=== PATIENT | female | born 1950 | race Caucasian/White ===

== ENCOUNTER 2019-02-24 11:18 | Outpatient (REF) | payer OTHER, SELFPAY ==
[2019-02-24 19:48] LABS: ALT 19 U/L (12-78); Albumin 3.6 g/dL (3.4-5.0); Anion Gap 9.4 mmol/L (3-11); BUN 16 mg/dL (7-18); CO2 28.6 mmol/L (21.0-32.0); Calcium 9.6 mg/dL (8.5-10.1); Chloride 102 mmol/L (98-107); Glucose 96 mg/dL (70-100); LDL CHOLESTEROL 72 mg/dL (<100); Magnesium 1.8 mg/dL (1.8-2.4); Potassium 4.3 mmol/L (3.5-5.1); Sodium 140 mmol/L (136-145)
[2019-02-24 20:14] LABS: CREATININE 0.75 mg/dL (0.55-1.02); PHOSPHORUS 4.1 mg/dL (2.6-4.7)
== END 2019-02-24 11:38 ==
LOC: NCHCN 11:18
PROVIDERS: PCP Internal Medicine; Visit Provider Internal Medicine
DX: E78.5 Hyperlipidemia, unspecified (principal); M81.0 Age-related osteoporosis without current pathological fracture; H34.8122 Central retinal vein occlusion, left eye, stable
CPT/HCPCS: 80069; 83721; 83735; 84460

== ENCOUNTER 2020-02-29 13:10 | Outpatient (REF) | payer OTHER, SELFPAY ==
[2020-02-29 19:49] LABS: HCT 42.1 % (36.0-46.0); HGB 13.7 g/dL (12.0-15.5); Mean Corp. HGB Concentration 32.5 g/dL (32.0-36.0); Mean Corpuscular Hemoglobin 30.7 pg (27.0-33.0); Mean Corpuscular Volume 94.4 fL (80-95); Mean Platelet Volume 12.1 fL (8.0-11.0); Platelet Count 332 x1000/uL (130-400); RBC 4.46 m/cumm (4.00-5.20); RBC Distribution Width 14.3 % (11.7-14.6); White Blood Cell Count 7.41 k/cumm (4.4-10.8)
[2020-02-29 20:36] LABS: ALT 23 U/L (14-59); Anion Gap 4.2 mmol/L (3-11); BUN 19 mg/dL (7-18); CO2 30.8 mmol/L (21.0-32.0); CREATININE 0.95 mg/dL (0.55-1.02); Calcium 9.9 mg/dL (8.5-10.1); Chloride 104 mmol/L (98-107); Estimated GFR 58.16 (mL/min/1.73m2); Glucose 88 mg/dL (74-106); LDL CHOLESTEROL 82 mg/dL (<100); Magnesium 2.1 mg/dL (1.8-2.4); Potassium 4.4 mmol/L (3.5-5.1); Sodium 139 mmol/L (136-145); TSH 1.05 uIU/mL (0.36-3.74)
[2020-02-29 21:02] LABS: FREE T4 1.04 ng/dL (0.76-1.46); PHOSPHORUS 4.3 mg/dL (2.6-4.7)
== END 2020-02-29 13:30 ==
LOC: NCHCN 13:10
PROVIDERS: PCP Internal Medicine; Visit Provider Internal Medicine
DX: E78.5 Hyperlipidemia, unspecified (principal); M06.9 Rheumatoid arthritis, unspecified; M81.0 Age-related osteoporosis without current pathological fracture; H81.10 Benign paroxysmal vertigo, unspecified ear
CPT/HCPCS: 80069; 83721; 85027; 83735; 84439; 84443; 84460

== ENCOUNTER 2020-10-09 18:39 | Outpatient (REF) | payer OTHER, SELFPAY ==
[2020-10-11 15:07] LABS: COVID-19 RT-PCR UVMMC Result Negative (Negative)
== END 2020-10-09 18:59 ==
LOC: NCHCN 18:39
PROVIDERS: PCP Internal Medicine; Visit Provider Physician Assistant
DX: Z20.822 Contact with and (suspected) exposure to COVID-19 (principal)
CPT/HCPCS: U0003

== ENCOUNTER 2020-12-17 14:52 | Outpatient (REF) | payer OTHER, SELFPAY ==
[2020-12-17 18:59] LABS: HCT 40.5 % (36.0-46.0); HGB 13.6 g/dL (11.2-15.7); MCH 31.3 pg (27.0-33.0); MCHC 33.6 % (32.0-36.0); MCV 93.1 fL (80-95); MPV 12.1 fL (8.0-11.0); Platelet Count 325 10^3/uL (130-400); RBC 4.35 10^6/uL (3.93-5.22); RDW 13.2 % (11.7-14.6); RDW-SD 45.3 fL; WBC 8.13 10^3/uL (4.4-10.8)
[2020-12-17 19:11] LABS: Anion Gap 8.9 mmol/L (3-11); BUN 19 mg/dL (7-18); CO2 28.1 mmol/L (21.0-32.0); CREATININE 0.9 mg/dL (0.55-1.02); Calcium 9.6 mg/dL (8.5-10.1); Chloride 105 mmol/L (98-107); Glucose 149 mg/dL (74-106); Potassium 4.1 mmol/L (3.5-5.1); Sodium 142 mmol/L (136-145)
[2020-12-17 19:12] LABS: Troponin I < 0.05 ng/mL (<0.06)
[2020-12-17 19:34] LABS: D-Dimer 823 ng/mlFEU (<500)
[2020-12-19 13:59] LABS: COVID-19 RT-PCR UVMMC Result Negative (Negative)
== END 2020-12-17 14:53 | disposition home or self-care (01) ==
LOC: NCHCN 14:52
PROVIDERS: PCP Internal Medicine; Visit Provider Internal Medicine
DX: R06.09 Other forms of dyspnea (principal); Z20.822 Contact with and (suspected) exposure to COVID-19
CPT/HCPCS: 80048; 85027; U0003; 84484; 85379

== ENCOUNTER 2021-03-04 18:38 | Outpatient (REF) | payer OTHER, SELFPAY ==
[2021-03-04 19:16] LABS: ALT 18 U/L (14-59); Albumin 3.9 g/dL (3.4-5.0); Anion Gap 8.6 mmol/L (3-11); BUN 18 mg/dL (7-18); CO2 29.4 mmol/L (21.0-32.0); CREATININE 0.9 mg/dL (0.55-1.02); Calcium 9.8 mg/dL (8.5-10.1); Chloride 104 mmol/L (98-107); Glucose 86 mg/dL (74-106); Magnesium 2.1 mg/dL (1.8-2.4); Potassium 4.6 mmol/L (3.5-5.1); Sodium 142 mmol/L (136-145)
[2021-03-04 19:48] LABS: LDL CHOLESTEROL 76 mg/dL (<100)
== END 2021-03-04 18:39 | disposition home or self-care (01) ==
LOC: NCHCN 18:38
PROVIDERS: PCP Internal Medicine; Visit Provider Internal Medicine
DX: M06.9 Rheumatoid arthritis, unspecified (principal); E78.5 Hyperlipidemia, unspecified
CPT/HCPCS: 80069; 83721; 83735; 84460

== ENCOUNTER 2021-07-15 13:02 | Outpatient (REF) | payer OTHER, SELFPAY | END 2021-07-15 13:03 | disposition home or self-care (01) | LOC: NCHCN 13:02 | PROVIDERS: PCP Internal Medicine; Visit Provider Nurse Practitioner Family | DX: R30.0 Dysuria (principal); N90.89 Other specified noninflammatory disorders of vulva and perineum | CPT/HCPCS: 87086 ==

== ENCOUNTER 2021-07-29 14:21 | Outpatient (REF) | payer MEDICARE, SELFPAY | END 2021-07-29 14:22 | disposition home or self-care (01) | LOC: NCHCN 14:21 | PROVIDERS: PCP Internal Medicine; Visit Provider Nurse Practitioner Family | DX: R30.0 Dysuria (principal); N90.89 Other specified noninflammatory disorders of vulva and perineum | CPT/HCPCS: 87086; 87480; 87510; 87660 ==

== ENCOUNTER 2022-03-24 15:51 | Outpatient (REF) | payer MEDICARE, SELFPAY ==
--- NOTE | 2022-03-24 15:30 | SKI_PTH ---
PATIENT: Kim Rosenberg LOC: [facility] U#:[id number] AGE/SX: 71/F ROOM: RE03/24/[address]: Pasquale Coello : 1950 BED: DIS: 03/24/2022 SPEC #: [id number] RECD: 03/24/22 18:22 STATUS: EDEN MOLINA #: [id number] GERSON: 03/24/22 15:[address]: Pasquale Coello DEPT: Surgical Specimen RECD BY: Tarsha Olivas Tissues: 1 - SKIN BIOPSY(SHAVE/PUNCH) Procedures: SKIN LEVEL 4 Comments: [id number]
[2022-03-24 19:31] LABS: Albumin 3.9 g/dL (3.4-5.0); BUN 22 mg/dL (7-18); CREATININE 0.7 mg/dL (0.55-1.02); Calcium 9.5 mg/dL (8.5-10.1); Chloride 104 mmol/L (98-107); Glucose 104 mg/dL (74-106); Magnesium 2.1 mg/dL (1.8-2.4); PHOSPHORUS 3.3 mg/dL (2.6-4.7); Potassium 4.3 mmol/L (3.5-5.1); Sodium 140 mmol/L (136-145)
== END 2022-03-24 15:52 | disposition home or self-care (01) ==
LOC: NCHCN 15:51
PROVIDERS: PCP Internal Medicine; Visit Provider Internal Medicine
DX: L82.1 Other seborrheic keratosis (principal); M81.0 Age-related osteoporosis without current pathological fracture; M06.9 Rheumatoid arthritis, unspecified
CPT/HCPCS: 80069; 83735; 88305

== ENCOUNTER 2022-03-24 15:52 | Outpatient (REF) | payer MEDICARE, SELFPAY | END 2022-03-24 15:53 | disposition home or self-care (01) | LOC: LBN 15:52 | PROVIDERS: PCP Internal Medicine; Visit Provider Internal Medicine | DX: R69 Illness, unspecified (principal) ==

== ENCOUNTER 2023-03-12 16:01 | Outpatient (REF) | payer MEDICARE, SELFPAY ==
[2023-03-12 19:50] LABS: Abs Immature Grans 0.01 10^3/uL (0.0-0.06); Absolute Basophil Count 0.05 10^3/uL (0.0-0.2); Absolute Eosinophil Count 0.29 10^3/uL (0.0-0.7); Absolute Lymphocyte Count 1.46 10^3/uL (1.2-3.4); Absolute Monocyte Count 0.64 10^3/uL (0.1-0.8); Absolute Neutrophil Count 4.22 10^3/uL (1.2-6.7); Basophils % 0.7; Eosinophils % 4.3; HCT 43.3 % (36.0-46.0); HGB 14.1 g/dL (11.2-15.7); Immature Grans % 0.1; Lymphocytes % 21.9; MCH 31.2 pg (27.0-33.0); MCHC 32.6 % (32.0-36.0); MCV 96 fL (80-95); Monocytes % 9.6; Neutrophils % 63.4; Platelet Count 293 10^3/uL (130-400); RBC 4.52 10^6/uL (3.93-5.22); RDW-SD 46.1 fL; WBC 6.67 10^3/uL (4.4-10.8)
[2023-03-12 21:05] LABS: Anion Gap 8.7 mmol/L (3-11); BUN 16 mg/dL (7-18); C-Reactive Protein 0.19 mg/dL (0.0-0.3); CO2 28.3 mmol/L (21.0-32.0); Calcium 9.8 mg/dL (8.5-10.1); Chloride 105 mmol/L (98-107); Creatine Kinase 596 U/L (26-192); Estimated GFR 59.49 (mL/min/1.73m2); Glucose 94 mg/dL (74-106); Magnesium 2.1 mg/dL (1.8-2.4); Potassium 4.4 mmol/L (3.5-5.1); Sodium 142 mmol/L (136-145); TSH 1.43 uIU/mL (0.36-3.74)
[2023-03-12 21:43] LABS: Calculated LDL 92 mg/dL (<100); Cholesterol 173 mg/dL (<200); HDL Cholesterol 70 mg/dL (40-60); Triglyceride 58 mg/dL (<150)
== END 2023-03-12 16:02 | disposition home or self-care (01) ==
LOC: NCHCN 16:01
PROVIDERS: PCP Internal Medicine; Visit Provider Internal Medicine
DX: Z00.00 Encounter for general adult medical examination without abnormal findings (principal); I47.20 Ventricular tachycardia, unspecified
CPT/HCPCS: 80048; 80053; 80061; 82550; 83735; 84443; 84460; 85025; 86140

== ENCOUNTER 2024-03-16 13:58 | Outpatient (REF) | payer MEDICARE, SELFPAY ==
[2024-03-16 20:35] LABS: ALT 25 U/L (14-59); Anion Gap 4.9 mmol/L (3-11); BUN 19 mg/dL (7-18); CO2 31.1 mmol/L (21.0-32.0); CREATININE 0.8 mg/dL (0.55-1.02); Calcium 9.8 mg/dL (8.5-10.1); Calculated LDL 83 mg/dL (<100); Chloride 103 mmol/L (98-107); Cholesterol 170 mg/dL (<200); Estimated GFR 77.27 (mL/min/1.73m2); Glucose 92 mg/dL (74-106); HDL Cholesterol 72 mg/dL (40-60); Magnesium 2.3 mg/dL (1.8-2.4); Potassium 4.4 mmol/L (3.5-5.1); Sodium 139 mmol/L (136-145); Triglyceride 76 mg/dL (<150); Vitamin D 25 Total 86.1 ng/mL (30-100)
[2024-03-16 20:51] LABS: Creatine Kinase 87 U/L (26-192)
== END 2024-03-16 13:59 | disposition home or self-care (01) ==
LOC: NCHCN 13:58
PROVIDERS: PCP Internal Medicine; Visit Provider Internal Medicine
DX: M81.0 Age-related osteoporosis without current pathological fracture (principal); I47.20 Ventricular tachycardia, unspecified; E78.5 Hyperlipidemia, unspecified; M06.9 Rheumatoid arthritis, unspecified
CPT/HCPCS: 80048; 80061; 82306; 82550; 83735; 84460

== ENCOUNTER 2025-04-19 17:54 | Outpatient (REF) | payer MEDICARE, SELFPAY ==
[2025-04-19 21:13] LABS: ALT 43 U/L (14-59); Anion Gap 7.9 mmol/L (3-11); BUN 23 mg/dL (7-18); CO2 29.1 mmol/L (21.0-32.0); Calcium 9.8 mg/dL (8.5-10.1); Calculated LDL 74 mg/dL (<100); Chloride 104 mmol/L (98-107); Cholesterol 172 mg/dL (<200); Estimated GFR 76.79 (mL/min/1.73m2); Glucose 108 mg/dL (74-106); HDL Cholesterol 65 mg/dL (>or=50); Potassium 3.7 mmol/L (3.5-5.1); Sodium 141 mmol/L (136-145); Triglyceride 168 mg/dL (<150)
[2025-04-19 22:03] LABS: Creatine Kinase 90 U/L (26-192)
== END 2025-04-19 17:55 | disposition home or self-care (01) ==
LOC: NCHCN 17:54
PROVIDERS: PCP Internal Medicine; Visit Provider Internal Medicine
DX: R53.83 Other fatigue (principal)
CPT/HCPCS: 80048; 80061; 82550; 84460